=== PATIENT | female | born 1955 | race Caucasian/White ===

== ENCOUNTER → 2017-10-21 | Outpatient (CLI) | payer OTHER ==
[~2017-10-21] MED LIST: ACHD5005 PO; ASP81TEC PO; CHOL2000 PO; COLE1TAB PO; DEXL60CA5 PO; IOHEXOL 350 MG/ML 100 ML (OMNIPAQUE 350) VIAL IV ONE; LORA-794 PO; MAGN400C PO; NFNEB10T PO; NS 100 ML (IVPB) BAG IV ONE; OMEG-12 PO; OMEP10CA4 PO; SCR1T1 PO
--- NOTE | 2017-10-21 10:37 | Diagnostic Imaging Report ---
PROCEDURE: CT abdomen and pelvis with contrast. TECHNIQUE: Multiple contiguous axial images were obtained through the abdomen and pelvis after administration of intravenous contrast. INDICATION: Abdominal pain. The previous CT abdomen/pelvis exam performed on 08/20/2016, noted tiny bilateral nonobstructive renal calculi. On this study the minute obstructive calculi are difficult to appreciate as a precontrast series was not performed. Both kidneys do show excretion of the contrast, however, and there is no sign of obstruction of either collecting system. There is no solid renal mass identified either. The parapelvic cysts involving both kidneys seen on the prior study are again evident and do not seem to have changed significantly. The prior exam also identified a 1.6-cm cyst in the left lobe of the liver as well as the periphery of the right lobe of the liver. Those findings are again evident and unchanged. The liver itself is stable in size and of lower density than usually seen. This does suggest fatty metamorphosis. As noted on the prior exam the gallbladder is surgically absent. The common bile duct near its entrance to the head of the pancreas is not abnormally dilated measuring 6.5 mm. The pancreas, the adrenals, the spleen, the aorta, and the inferior vena cava are unremarkable for an acute abnormality. The stomach is not well distended and consequently difficult to assess. As noted on the prior exam there are a few diverticula in the sigmoid and descending colon. There is no evidence for acute diverticulitis. The uterus is surgically absent. The urinary bladder is grossly unremarkable. The appendix was not well visualized, but there are no indirect signs of acute appendicitis. The bone windows show no evidence for a fracture or for a destructive lesion. There is fairly severe degenerative facet disease at the L5-S1 level bilaterally. The lung bases are clear. IMPRESSION: 1. There is no acute abnormality of the abdomen or pelvis. 2. The minute nonobstructive calculi within the kidney seen previously are difficult to appreciate on this exam. There is no sign of obstruction of either collecting system, however. 3. There is diverticulosis of the sigmoid and descending colon without evidence for acute diverticulitis. 4. The uterus and gallbladder are surgically absent. 5. There is fairly severe degenerative facet disease at L5-S1 bilaterally. Dictated by: Dictated on workstation # [id number]
== END ==
LOC: RAD 07:37
PROVIDERS: ATTEND Nurse Practitioner Family
DX: K57.30 Diverticulosis of large intestine without perforation or abscess without bleeding (principal); M51.37 Other intervertebral disc degeneration, lumbosacral region; Z90.49 Acquired absence of other specified parts of digestive tract
CPT/HCPCS: 74177

== ENCOUNTER → 2018-02-14 | Outpatient (CLI) | payer OTHER ==
[~2018-02-14] MED LIST changes: -IOHEXOL 350 MG/ML 100 ML (OMNIPAQUE 350) VIAL IV ONE; -NS 100 ML (IVPB) BAG IV ONE
--- NOTE | 2018-02-14 14:18 | Diagnostic Imaging Report ---
PROCEDURE: US carotid duplex, bilateral. TECHNIQUE: Multiple real-time grayscale images were obtained over the carotid arteries in various projections, bilaterally. Additional duplex Doppler and color Doppler images were also obtained. INDICATION: Carotid artery disease and hypertension. There is minimal plaque identified at the right carotid bifurcation. The velocities are normal bilaterally. Both vertebral arteries demonstrate antegrade flow. IMPRESSION: No evidence of a hemodynamically significant stenosis. Parameters based on the consensus panel Fregoso-Scale and Doppler ultrasound criteria published September 2003, Radiology, Volume 229. DOPPLER (peak systolic velocity M/S Right Left CCA .42 .79 ICA Proximal .75 .52 ICA Mid .69 .78 ICA Distal .86 .84 RATIO 1.2 1.1 ECA 1.06 .76 VERT .40 .10 Dictated by: Dictated on workstation # [id number]
== END ==
LOC: RAD 13:20
PROVIDERS: ATTEND Family Medicine
DX: I65.29 Occlusion and stenosis of unspecified carotid artery (principal); I10 Essential (primary) hypertension
CPT/HCPCS: 93880

== ENCOUNTER → 2018-10-25 | Outpatient (CLI) | payer OTHER ==
--- NOTE | 2018-10-25 14:00 | Diagnostic Imaging Report ---
INDICATION: Left breast pain. COMPARISON: 01/03/2018 and 12/28/2016. TECHNIQUE: 2D and 3D unilateral left diagnostic mammography was performed with CAD. FINDINGS: The left breast is heterogeneously dense, limiting the sensitivity of mammography. No dominant mass or malignant appearing microcalcifications are seen. There are benign calcifications on the left. The left axilla is unremarkable. IMPRESSION: No suspicious mammographic abnormality is seen. Even so, sonographic interrogation of the left breast at the area of pain is recommended and will be performed today. ACR BI-RADS Category 0: Incomplete. (Needs additional imaging evaluation). Result letter will be mailed to the patient. Note: At least 10% of breast cancer is not imaged by mammography. Dictated by: Dictated on workstation # [id number]
--- NOTE | 2018-10-25 14:20 | Diagnostic Imaging Report ---
INDICATION: Left breast pain. COMPARISON: Correlation is made with the diagnostic mammogram from earlier this same day. FINDINGS: Sonographic interrogation of all four quadrants as well as the retroareolar region and left axillary region of the left breast was performed. No sonographic abnormality is seen. No solid or cystic mass is detected. IMPRESSION: No sonographic abnormality is seen. Clinical followup is recommended. ACR BI-RADS Category 1: Negative. Dictated by: Dictated on workstation # [id number]
== END ==
LOC: RAD 12:18
PROVIDERS: ATTEND Nurse Practitioner
DX: N64.4 Mastodynia (principal)
CPT/HCPCS: 76641

== ENCOUNTER → 2018-10-27 | Outpatient (CLI) | payer OTHER ==
[~2018-10-27] VITALS: Ht 162.6 cm; Wt 68.0 kg
[~2018-10-27] MED LIST changes: +CATHETER FLUSH 10 ML SYR IV PRN
[2018-10-27 09:13] VITALS: BP 149/92
[2018-10-27 09:32] VITALS: BP 137/77
--- NOTE | 2018-10-27 11:42 | Cardiology Stress Test Report ---
Stress Test Report Type of NM Stress Test: Test Type: NUCLEAR TREADMILL Date of Procedure/Referring: Date of Procedure: Oct 27, 2018 PCP Consuelo Rogel MD Admitting Physician Desiree Weston MD Indications: Chest discomfort Baseline Heart Rate: 73 Baseline Blood Pressure: Blood Pressure Systolic: 137 Blood Pressure Diastolic: 77 Baseline EKG: Baseline EKG: sinus rhythm Summary & Conclusion: Summary: The patient was brought to the stress lab after informed consent was taken. Stress test was performed according to the Bk protocol. Patient exercised for 7 minutes and 45 seconds and achieved 9.3 metabolic equivalents. 89 percent of maximum predicted heart rate response. Maximum heart rate was 141 BPM. Maximum blood pressure 203/90 mmHg. Initial blood pressure 158/85 mmHg. Patient did not have any chest pain, arrhythmias or ST segment changes during the stress test. 10.69 mCi of Myoview were given for rest imaging and 33 mCi of Myoview given for stress imaging. Transient ischemic dilatation score 0.95, EF 71 percent. Normal wall motion. Normal myocardial perfusion imaging during rest and stress. Conclusion: Pharmacological stress test was negative for ischemia. Normal LV function with no wall motion abnormalities. Normal myocardial perfusion imaging during rest and stress. Consuelo ROGEL MD Oct 27, 2018 11:42 am
== END ==
LOC: CARD 08:12
PROVIDERS: ATTEND Internal Medicine Interventional Cardiology
DX: R07.89 Other chest pain (principal); E78.5 Hyperlipidemia, unspecified; I10 Essential (primary) hypertension; R00.2 Palpitations
CPT/HCPCS: 78452; 93017; 93306

== ENCOUNTER 2018-11-20 11:00 | Outpatient (RCR) | payer OTHER ==
[~2018-11-20 11:00] MED LIST changes: -CATHETER FLUSH 10 ML SYR IV PRN
== END 2019-01-25 | disposition home or self-care (01) ==
LOC: CARD 11:00
PROVIDERS: ATTEND Internal Medicine Interventional Cardiology
DX: R07.89 Other chest pain (principal); E78.5 Hyperlipidemia, unspecified; I10 Essential (primary) hypertension; R00.2 Palpitations
CPT/HCPCS: 93270

== ENCOUNTER → 2019-01-02 | Outpatient (CLI) | payer OTHER ==
--- NOTE | 2019-01-02 20:05 | Diagnostic Imaging Report ---
INDICATION: Screening. The current study was also evaluated with a Computer Aided Detection (CAD) system. COMPARISON: Comparison made with prior examinations from 10/25/2018 back through 11/25/2012. 3D tomosynthesis was performed and reviewed. FINDINGS: The fibroglandular tissue is heterogeneously dense bilaterally. There are benign-type calcifications in both breasts. There is no dominant mass, spiculated lesion, or suspicious calcification identified. The skin, nipples, and axillae are unremarkable. IMPRESSION: Benign. ACR BI-RADS Category 2: Benign findings. Result letter will be mailed to the patient. Note: At least 10% of breast cancer is not imaged by mammography. Dictated by: Dictated on workstation # [id number]
== END ==
LOC: RAD 09:46
PROVIDERS: ATTEND Nurse Practitioner Family
DX: Z12.31 Encounter for screening mammogram for malignant neoplasm of breast (principal)
CPT/HCPCS: 77067

== ENCOUNTER 2019-01-09 11:13 | Outpatient (RCR) | payer OTHER | END 2019-04-09 | disposition home or self-care (01) | LOC: CARD 11:13 | PROVIDERS: ATTEND Internal Medicine Interventional Cardiology | DX: R07.89 Other chest pain (principal); R00.2 Palpitations | CPT/HCPCS: 93270 ==

== ENCOUNTER → 2019-05-09 | Outpatient (CLI) | payer OTHER ==
[~2019-05-09] MED LIST changes: +GADOBUTROL 7.5 MMOL/7.5 ML (GADAVIST) VIAL IV ONE
[2019-05-09 08:22] LABS: CREATININE SERUM 0.96 MG/DL (0.60-1.30)
--- NOTE | 2019-05-09 10:18 | Diagnostic Imaging Report ---
CLINICAL INDICATION: Patient states she is having trouble with headaches, memory loss, pressure behind the ears, tingling left side of her head. EXAM: MRI of the brain performed without and with 6 cc of Gadavist IV contrast. Sequences include axial DWI, ADC map, axial gradient echo, axial T2, axial FLAIR, axial 3-D FIESTA, axial T1, axial T1 post IV contrast, coronal T1 fat-sat post IV contrast, and sagittal T1 post IV contrast. COMPARISON: CT scan of the head performed without contrast dated 12/02/2015. FINDINGS: There is no evidence of acute cerebral infarct, intracranial hemorrhage, or gross mass effect. There is no abnormal IV contrast enhancement. The brain parenchymal volume appears appropriate for patient's age. There is minimal amount of focal areas of high T2 signal white matter changes seen throughout both cerebral hemispheres There is normal rajan-white matter distinction. There is no significant midline shift or herniation. The [place] vascular structures show no gross abnormality as visualized. The pituitary gland, sella, and suprasellar regions are unremarkable as visualized. There is no evidence of hydrocephalus. Basal cisterns are unremarkable with no mass. Visualized portions of the cranial nerves are unremarkable. Bilateral fifth cranial nerves and regions of the seventh and eighth cranial nerves show no significant abnormality. There is high T2 signal fluid filled otic capsular structures seen without significant abnormality. The basal cisterns are unremarkable. The skull, extracranial soft tissue, and orbits are unremarkable. There is minimal fluid in the left mastoid air cells. Temporal bones show no significant abnormality. IMPRESSION: 1: Unremarkable MRI of the brain for age. There is no abnormal IV contrast enhancement. 2: Basal cisterns and visualized cranial nerves show no significant abnormality. 3: Minimal chronic ischemic changes of the brain parenchyma. Dictated by: Dictated on workstation # [id number]
== END ==
LOC: RAD 07:44
PROVIDERS: ATTEND Nurse Practitioner Family
DX: R51 Headache (principal); R42 Dizziness and giddiness; R41.3 Other amnesia; R20.2 Paresthesia of skin
CPT/HCPCS: 36415; 70553; 82565; 84520

== ENCOUNTER 2019-12-20 11:54 | Outpatient (RCR) | payer OTHER ==
[~2019-12-20 11:54] MED LIST changes: -GADOBUTROL 7.5 MMOL/7.5 ML (GADAVIST) VIAL IV ONE
== END 2020-03-19 | disposition home or self-care (01) ==
LOC: CARD 11:54
PROVIDERS: ATTEND Nurse Practitioner Family
DX: I49.3 Ventricular premature depolarization (principal); I49.1 Atrial premature depolarization; R00.2 Palpitations

== ENCOUNTER → 2020-01-16 | Outpatient (CLI) | payer OTHER ==
--- NOTE | 2020-01-16 12:57 | Diagnostic Imaging Report ---
INDICATION: Routine screening. Comparison is made with prior mammogram from 01/02/2019 and 01/03/2018. 2-D and 3-D bilateral screening mammography was performed with a Computer Aided Detection (CAD) system. 3-D tomosynthesis was also performed and reviewed. FINDINGS: Both breasts are heterogeneously dense, limiting the sensitivity of mammography. There are numerous benign calcifications scattered throughout both breasts. Overall parenchymal pattern appears to be stable. No mass or malignant appearing microcalcifications are seen. The axillae are unremarkable. IMPRESSION: No mammographic features suspicious for malignancy are identified. ACR BI-RADS Category 2: Benign findings. Result letter will be mailed to the patient. Note: At least 10% of breast cancer is not imaged by mammography. Dictated by: Dictated on workstation # [id number]
== END ==
LOC: RAD 09:12
PROVIDERS: ATTEND Nurse Practitioner Family
DX: Z12.31 Encounter for screening mammogram for malignant neoplasm of breast (principal)
CPT/HCPCS: 77067

== ENCOUNTER → 2020-11-26 | Outpatient (CLI) | payer OTHER ==
[~2020-11-26] MED LIST changes: +CATHETER FLUSH 10 ML SYR IV PRN; +HOLD METFORMIN - RECEIVED CONTRAST 20 ML VIAL IV SCH; +IOHEXOL 350 MG/ML 100 ML (OMNIPAQUE 350) VIAL IV ONE; +NS 100 ML (IVPB) BAG IV ONE
--- NOTE | 2020-11-26 11:45 | Diagnostic Imaging Report ---
PROCEDURE: CT abdomen and pelvis with and without contrast. TECHNIQUE: Precontrast acquisitions were acquired through the abdomen and pelvis. Multiple contiguous axial images were obtained through the abdomen and pelvis after the administration of intravenous contrast. Auto Exposure Controls were utilized during the CT exam to meet ALARA standards for radiation dose reduction. DATE: November 26, 2020. COMPARISON: CT abdomen pelvis October 21, 2017. INDICATION: 65-year-old female, abdominal pain and diarrhea. FINDINGS: The visualized portions of the lung bases are clear. The heart is not enlarged. There is no pericardial effusion. The liver is unremarkable in size and contour. Main, right, and left portal veins are patent. There is a 13 mm benign cyst in the left lobe of the liver on axial image 13. There is a 4 mm low-attenuation lesion in the right lobe of the liver on axial postcontrast image 14 too small to characterize. There is also a 5 mm low-attenuation lesion in the liver too small to characterize on axial postcontrast image 21. The subcentimeter lesions are present on October 21, 2017 and are unchanged consistent with benign etiology. The patient is status post cholecystectomy. There is no intrahepatic or extrahepatic bile duct dilation. The main pancreatic duct is not abnormally dilated. Unremarkable appearance of the pancreatic parenchyma. The spleen is normal in size. The adrenal glands are unremarkable. There are bilateral benign parapelvic cysts. Urinary collecting systems are not distended. There is no identified renal or ureteral stone. There are pelvic calcifications consistent with phleboliths. There is no abnormal wall thickening of the urinary bladder. Uterus is not seen and likely is surgically absent. The intestinal tract is not distended. There is no free intraperitoneal air. There is no drainable fluid collection. There is no free pelvic fluid. There are mild atherosclerotic calcifications. There is no identified abnormally enlarged lymph node in the abdomen or pelvis meeting CT size criteria for adenopathy. There is no identified acute bony abnormality. There are degenerative changes of the spine. IMPRESSION: CT ABDOMEN AND PELVIS. 1. No identified acute abnormality in the abdomen or pelvis. 2. Bilateral benign parapelvic cysts. 3. Benign cyst in the left lobe of the liver and subcentimeter liver lesions consistent with benign etiology given stability since October 21, 2017. Dictated by: Dictated on workstation # [id number]
== END ==
LOC: RAD 09:53
PROVIDERS: ATTEND Family Medicine
DX: R19.7 Diarrhea, unspecified (principal); K76.89 Other specified diseases of liver; N94.89 Other specified conditions associated with female genital organs and menstrual cycle; Z87.19 Personal history of other diseases of the digestive system
CPT/HCPCS: 74178

== ENCOUNTER → 2021-01-30 | Outpatient (CLI) | payer OTHER ==
[~2021-01-30] MED LIST changes: -CATHETER FLUSH 10 ML SYR IV PRN; -HOLD METFORMIN - RECEIVED CONTRAST 20 ML VIAL IV SCH; -IOHEXOL 350 MG/ML 100 ML (OMNIPAQUE 350) VIAL IV ONE; -NS 100 ML (IVPB) BAG IV ONE
--- NOTE | 2021-01-31 08:40 | Diagnostic Imaging Report ---
EXAM: Digital mammogram bilateral screening This study was compared to the prior exams of 01/16/2020, 01/02/2019, 01/03/2018 and 12/28/2016. At this time there are no current complaints. The fibroglandular tissue in both breasts is heterogeneously dense. This does limit the sensitivity of this exam. As on the previous study, there are numerous microcalcifications scattered throughout both breasts. Overall, there does not appear to have been any significant change since the previous exams. There is no primary or secondary sign of malignancy noted. IMPRESSION: There is no evidence of malignancy. ACR BI-RADS Category 1: Negative. Result letter will be mailed to the patient. Note: At least 10% of breast cancer is not imaged by mammography. Dictated by: Dictated on workstation # [id number]
== END ==
LOC: RAD 10:15
PROVIDERS: ATTEND Family Medicine
DX: Z12.31 Encounter for screening mammogram for malignant neoplasm of breast (principal)
CPT/HCPCS: 77063; 77067

== ENCOUNTER → 2021-07-01 | Outpatient (CLI) | payer MEDICARE, OTHER ==
--- NOTE | 2021-07-01 12:03 | Diagnostic Imaging Report ---
PROCEDURE: US carotid duplex, bilateral. TECHNIQUE: Multiple real-time grayscale images were obtained over the carotid arteries in various projections, bilaterally. Additional spectral analysis and color Doppler duplex images were also obtained. INDICATION: Coronary artery disease, hypertension. The previous carotid Doppler exam performed on 02/24/2018 failed to show any sign of a hemodynamically significant stenosis of either carotid system. On this exam there is again evidence of minimal soft plaque formation in each carotid system. However the flow velocities are generally unremarkable and there is still no evidence for hemodynamically significant stenosis of either common or internal carotid arteries. Both vertebral arteries were noted and there was antegrade flow bilaterally. IMPRESSION: There is soft plaque formation in both carotid systems. There is still no evidence for hemodynamically significant stenosis of the common or internal carotid arteries. Parameters based on the consensus panel Fregoso-Scale and Doppler ultrasound criteria published September 2003, Radiology, Volume 229. DOPPLER (peak systolic velocity M/S Right Left CCA .68 .99 ICA Proximal .49 .50 ICA Mid .73 .60 ICA Distal .79 .92 RATIO 1.2 .9 ECA .69 .81 VERT .42 .41 Dictated by: Dictated on workstation # [id number]
== END ==
LOC: RAD 11:00
PROVIDERS: ATTEND Family Medicine
DX: I10 Essential (primary) hypertension (principal)
CPT/HCPCS: 93880

== ENCOUNTER → 2022-02-03 | Outpatient (CLI) | payer MEDICARE ==
--- NOTE | 2022-02-03 13:13 | Diagnostic Imaging Report ---
INDICATION: Routine screening. COMPARISON: 01/30/2021 and 01/16/2020. TECHNIQUE: 2D and 3D bilateral screening mammography was performed with CAD. FINDINGS: Both breasts are heterogeneously dense, limiting the sensitivity of mammography. Innumerable calcifications are scattered throughout both breasts, similar to the prior study. No mass or malignant-appearing microcalcifications are seen. The axillae are unremarkable. IMPRESSION: No mammographic features suspicious for malignancy are identified. ACR BI-RADS Category 2: Benign findings. Result letter will be mailed to the patient. Note: At least 10% of breast cancer is not imaged by mammography. Dictated by: Dictated on workstation # [id number]
== END ==
LOC: RAD 10:15
PROVIDERS: ATTEND Family Medicine
DX: Z12.31 Encounter for screening mammogram for malignant neoplasm of breast (principal)
CPT/HCPCS: 77063; 77067

== ENCOUNTER → 2023-02-05 | Outpatient (CLI) | payer MEDICARE ==
--- NOTE | 2023-02-05 16:23 | Diagnostic Imaging Report ---
Indication: Routine screening. Comparison is made with prior mammograms 02/03/2022 and 01/30/2021. 2-D and 3-D bilateral screening mammography was performed with CAD. Both breasts are heterogeneously dense, limiting the sensitivity of mammography. Numerous microcalcifications are noted throughout both breasts, similar to prior. No dominant mass or malignant-appearing microcalcifications are seen. Axillae are unremarkable. IMPRESSION: BI-RADS Category 2. No mammographic features suspicious for malignancy are identified. ACR BI-RADS Category 2: Benign findings. Result letter will be mailed to the patient. Note: At least 10% of breast cancer is not imaged by mammography. Dictated on workstation # [id number]
== END ==
LOC: RAD 08:47
PROVIDERS: ATTEND Family Medicine
DX: Z12.31 Encounter for screening mammogram for malignant neoplasm of breast (principal)
CPT/HCPCS: 77063; 77067